=== PATIENT | female | born 1990 | race Caucasian/White ===

== ENCOUNTER 2016-05-25 17:46 | Emergency (ER) | payer OTHER ==
[~2016-05-25] VITALS: Ht 170.2 cm; Wt 138.6 kg
[~2016-05-25 17:46] MED LIST: ASCO-294 PO; DOCU-41 PO; FERR-83 PO
[2016-05-25 18:34] VITALS: BP 127/88; PULSE 85; RESP 16; O2SAT 99
[2016-05-25] MEDS ORDERED: 0.9% Sodium Chloride 1,000 ML IV ONE (20:01)
[2016-05-25] MEDS ORDERED: Ondansetron 2 mg/mL 2 mL Inj IVPUSH PRN (20:05)
--- NOTE | 2016-05-25 20:10 | ED.REPORT ---
HPI-Abd Pain F Under 40 Date of Service May 25, 2016 ED Provider: Radha Mendez MD Pt is a 25 y/o female presenting to the ED c/o abdominal pain onset today. She had a single episode of white stool yesterday which progressed to yellow- specked stools today. She attempted to call her PCP's office with no success. She c/o band-like fullness across the epigastrium, nausea and vomiting which have resolved. She denies fever, chills. She has never experienced symptoms similar to this before and has no history of liver disease. Abdominal surgeries: Nursing Notes Stated Complaint: NAUSEA, FATIGUE, WHITE STOOL Chief Complaint: Female Abdominal Pain Nursing Notes Reviewed: Yes Allergies: Coded Allergies: No Known Allergies (Unverified , 11/19/15) Scheduled Ascorbate Calcium (Vitamin C) 500 Mg Tablet 500 MG PO DAILY Take with Iron Ferrous Sulfate (Ferrous Sulfate) 325 Mg Tablet 325 MG PO DAILY Scheduled PRN Docusate Sodium (Colace) 100 Mg Capsule 100 MG PO BID PRN PRN For Constipation General Time Seen by MD: 20:00 Chief Complaint Abdominal pain Hx Obtained From: Patient Arrived By: Walk-in Sudden in Onset?: No Onset Occurred: 5 - 8 hours ago Symptom Duration: Since onset Location: : Epigastric Quality: Fullness Radiation: : Does not radiate Severity: Current: Mild Severity: Maximum: Mild Similar Sx Previous: No Past Medical History Past Medical History baby boy born 10/31/2016 Past Surgical History Reports: Smoking History Never Smoker Social History Alcohol Use: Denies alcohol use Drug Use: Denies drug use Occupation lives with family Ambulatory Status Independent Review of Systems Review of Systems Note: +white stool Constitutional: Denies: Chills, Fever Respiratory: Denies: Non-productive cough, Shortness of breath Cardiovascular: Denies: Chest pain GI: Reports: Abdominal pain, Nausea, Vomiting Complete sys rev & neg: except as marked. Physical Exam Initial Vital Signs Vital Signs (First) Date Time Temp Pulse Resp B/P Pulse Ox O2 Delivery O2 Flow Rate FiO2 05/25/16 18:34 36.6 85 16 127/88 99 Room Air Initial VS: Reviewed ENT: Mucous membranes moist, Conjunctiva normal, No scleral icterus Neurologic: Alert, Oriented, Nonfocal Psychiatric: Mood/affect normal, Behavior normal, Normal thought content General/Constitutional: Awake, Alert, No acute distress, Well appearing, Cooperative, Not toxic appearing Appearance / Presentation: Negative: Icteric Respiratory / Chest: Atraumatic, Breath sounds NL, Breath sounds = bilat, No respiratory distress, No rales, No rhonchi, No wheezing, No retractions Cardiovascular: Heart rate NL, Regular rhythm, Heart sounds NL, No gallop, No murmurs, No rubs, Cap refill not delayed, Peripheral circulation NL Abdomen: Atraumatic, Soft, No guarding, No rebound, No palpable mass Mildly distention of the upper quadrants Back: Full range of motion, Painless range of motion Head / Eyes: Atraumatic, Normocephalic, PERRL, EOMI, No scleral icterus Skin: Atraumatic, Color NL, No rash, Warm, Dry, Intact Color / Condition: Negative: Jaundice present Interpretation & Diagnostics Lab Results Interpretation Result Diagram: 05/25/16195505/25/161955 Test 05/25/16 19:50 05/25/16 19:56 05/25/16 20:00 Hold Pratt Top Tube Received (Received) White Blood Count 7.3th/mm3 (3.8-10.1) Red Blood Count 5.25mil/mm3 (3.90-5.20) Hemoglobin 13.2g/dL (12.0-15.6) Hematocrit 40.5% (35.0-46.0) Mean Corpuscular Volume 77.1fL (81-100) Mean Corpuscular Hemoglobin 25.1pg (27.0-35.0) Mean Corpuscular Hemoglobin Concent 32.6% (32.0-37.0) Red Cell Distribution Width 14.5% (12.3-15.4) Platelet Count 216bil/L (150-400) Neutrophils (%) (Auto) 54.1% (40-74) Lymphocytes (%) (Auto) 37.2% (14-46) Monocytes (%) (Auto) 6.7% (4-12) Eosinophils (%) (Auto) 1.4% (0-5) Basophils (%) (Auto) 0.5% (0-3) Sodium Level 141mEq/L (134-144) Potassium Level 4.2mEq/L (3.5-5.2) Chloride Level 104mEq/L (97-108) Carbon Dioxide Level 26mmol/L (18-29) Blood Urea Nitrogen 11mg/dL (6-20) Creatinine 0.59mg/dL (0.57-1.00) Estimat Glomerular Filtration Rate 176mL/min (>59) Glucose Level 90mg/dL (60-99) Calcium Level 8.9mg/dL (8.5-10.1) Magnesium Level 2.0mg/dL (1.6-2.6) Total Bilirubin 0.2mg/dL (0.0-1.2) Aspartate Amino Transf (AST/SGOT) 35U/L (0-50) Alanine Aminotransferase (ALT/SGPT) 56U/L (0-32) Alkaline Phosphatase 57U/L (25-150) Total Protein 6.8g/dL (6.4-8.4) Albumin 4.0g/dL (3.4-5.0) Lipase 35U/L (13-60) Urine Color Yellow (YELLOW) Urine Appearance Clear (CLEAR,HAZY) Urine pH 6.5 (5.0-8.0) Urine Specific [place] 1.010 (1.003-1.035) Urine Protein Negativemg/dL (NEG,TRACE) Urine Glucose (UA) Negativemg/dL (NEGATIVE) Urine Ketones Negativemg/dL (NEGATIVE) Urine Occult Blood Negative (NEGATIVE) Urine Nitrite Negative (NEGATIVE) Urine Bilirubin Negative (NEGATIVE) Urine Urobilinogen Normalmg/dL (NORMAL) Urine Leukocyte Esterase Negative (NEGATIVE) Urine RBC 0-2/hpf (0-2) Urine WBC 0-5/hpf (0-5) Urine Epithelial Cells Moderate/hpf (NONE-MOD) Urine Crystals None seen (NONE SEEN) Urine Bacteria None/hpf (NONE-FEW) Urine Hyaline Casts None/lpf (NONE) Urine Granular Casts None seen (NONE SEEN) Urine Waxy Casts None seen (NONE SEEN) Urine Red Blood Cell Casts None seen (NONE SEEN) Urine White Blood Cell Casts None seen (NONE SEEN) Urine Mucus None seen (None Seen) Urine Trichomonas None seen (NONE SEEN) Urine Yeast None (NONE SEEN) Urinalysis Comment None Urine Culture Reflexed Not indicated Lab Results Interpretation: Urine preg: negative Re-Eval/Medical Decision Re-Evaluation/Progress : Time of Eval: 21:30 Re-Evaluation/Progress Note: Pt rechecked. Informed pt of plan for treatment. Pt understands and agrees with plan for treatment. F/U and RTER warnings given. All questions addressed. Counseled Regarding: Diagnosis, Lab results, Need for follow-up, When/why to return to ED Discharge & Departure Primary Impression: Diarrhea Additional Impression: Viral syndrome Disposition: Home Discharge Condition All VS Reviewed: Yes Condition: Stable Patient Instructions: Acute Diarrhea (ED) Additional Instructions: Your labs today were normal. The liver function tests were within normal limits. The cause of your abnormally colored stools is unclear, but is not dangerous at this point. My best guess is that your symptoms are caused by a virus. Return to the emergency department for persistently abnormally colored stools, worsening abdominal pain, uncontrolled vomiting, you develop a high fever, or for other concerning signs or symptoms. Referrals: Janae Vargas PA-C (PCP) Saba Attestation Portions of this note were transcribed by Oskar Foote. I, Dr. Mendez personally performed the history, physical exam and medical decision-making; I reviewed and confirmed the accuracy of the information in the transcribed note. Signed by Saba Dale, 05/25/152010 copies to: Janae Vargas PA-C, Shawna L MD May 25, 2016 20:10 OSKAR FOOTE May 25, 2016 20:13
[2016-05-25 20:12] LABS: BASOPHILS % (AUTO) 0.5 % (0-3); EOSINOPHILS % (AUTO) 1.4 % (0-5); MONOCYTES % (AUTO) 6.7 % (4-12); Mean Corpuscular Hemoglobin 25.1 pg (27.0-35.0); Mean Corpuscular Volume 77.1 fL (81-100); NEUTROPHILS % (AUTO) 54.1 % (40-74); Platelet Count 216 bil/L (150-400)
[2016-05-25 20:22] LABS: APPEARANCE,URINE CLEAR (CLEAR,HAZY); COLOR,URINE YELLOW (YELLOW); OCCULT BLOOD,URINE NEGATIVE (NEGATIVE); PH,URINE 6.5 (5.0-8.0); UROBILINOGEN,URINE NORMAL (NORMAL)
[2016-05-25 21:59] VITALS: BP 136/88; PULSE 85; RESP 20; O2SAT 100
== END 2016-05-25 22:00 | disposition home or self-care (01) ==
LOC: SED 17:46
DX: R19.7 Diarrhea, unspecified (principal); B34.9 Viral infection, unspecified

== ENCOUNTER 2016-09-06 05:51 | Day surgery (SDC) | payer OTHER ==
[2016-09-06] VITALS (7 sets, daily range): BP systolic 120–167; BP diastolic 60–98; PULSE 88–103; RESP 16–20; O2SAT 92–97
[~2016-09-06] VITALS: Ht 170.2 cm; Wt 144.3 kg
[~2016-09-06 05:51] MED LIST changes: -ASCO-294 PO; -DOCU-41 PO; -FERR-83 PO; +Lactated Ringer's 1,000 ML IV ONE
[2016-09-06] MEDS ORDERED: fentaNYL-PF 50 mCg/mL 2 mL Inj ONE (05:52)
[2016-09-06] MEDS ORDERED: Ondansetron 2 mg/mL 2 mL Inj ONE (05:52)
[2016-09-06] MEDS ORDERED: Dexamethasone 4 mg/mL Inj ONE (05:52)
[2016-09-06] MEDS ORDERED: Remifentanil 1 mg/3 mL Inj ONE (05:52)
[2016-09-06] MEDS ORDERED: Succinylcholine Chloride 20 mg/mL 5 mL Inj ONE (05:52)
[2016-09-06] MEDS ORDERED: Propofol 10,000 mCg/mL 20 mL Inj ONE (05:52)
[2016-09-06] MEDS ORDERED: Rocuronium 10 mg/mL 5 mL Inj ONE (05:52)
[2016-09-06] MEDS ORDERED: CeFAZolin Inj 3 GM in IV Premix IV ONE (06:00)
[2016-09-06] MEDS ORDERED: OXYC1TAB24 PO (06:27)
[2016-09-06] MEDS ORDERED: Lactated Ringer's 500 ML IV PRN (08:12)
[2016-09-06] MEDS ORDERED: Lactated Ringer's 1,000 ML IV SCH (08:12)
--- NOTE | 2016-09-06 08:12 | PCM.HPANE ---
Patient Data Surgeon Admitting Provider: Attending Provider:Alex Davis MD Primary Care Physician:Janae Vargas PA-C Other Provider:Pop Murrieta Anesthesia Reason for Visit Right Wrist Radial Volar Ganglion Cyst Ht/WT & BMI Height (Feet): 5 Height (Inches): 7 Weight (Kilograms): 144.3 Body Mass Index 49.00 Allergies Coded Allergies: No Known Allergies (Unverified , 09/03/16) Past Anesthesia History Anesthesia History: Denies:: Anesthesia Reactions, Malignant Hyperthermia Diabetes History Hx Diabetes?: No MRSA MRSA: No Medications Hypertension Medication: No Home Meds Incl Beta Mona: No Reported Medications oxyCODONE-Acetaminophen 5-325 mg 1 Each Tablet1 Tablet PO prn #30 09/06/16 History History of ENT Problems?: Yes HEENT History: Positive for:: Sinus Problem (SEASONAL ALLERGIES) Denies:: Abnormal Airway Cataracts Difficult Intubation Dysphagia Glaucoma Hearing Problem TMJ Denture Type: None Teeth Condition: Within Normal Limits Hx of Heart Problems?: No Cardiovascular History: Denies:: AICD Abdominal Aortic Aneurism Atrial Fibrillation Cardiac Surgery Chest Pain Congestive Heart Failure Coronary Artery Disease Edema Heart Murmur Hypertension Irregular Heartbeat Pacemaker Peripheral Vascular Rheumatic Fever Thrombophlebitis Valvular Heart Disease Hx of Respiratory Problem?: No Respiratory History: Denies:: Asthma COPD Chest Surgery Cough Dyspnea Emphysema Hemoptysis Oxygen Administration Pneumonia Pulmonary Embolism Tuberculosis Use of C-PAP Machine Use of Inhalers / NEBS Hx Neurologic Problems?: No Neurological History: Denies:: Alzheimer's Disease CVA Dementia Dizziness Headaches Multiple Sclerosis Parkinson's Disease Peripheral Neuropathy Seizures TIA Hx of GI Problems?: Yes Gastrointestinal History: Denies:: Cirrhosis Diverticulitis Gall Bladder Disease Gastroesphageal Reflux Gastrointestinal Bleeding Heartburn Hepatitis Hiatal Hernia Liver Disease Rectal Bleeding Other GI Pertinent History: OBESITY Hx of Problems?: No Female Hx: Denies:: Currently (neg test) Skin History: Denies:: History Skin Disorders? Pressure Ulcers Hx Musculoskeletal Problems?: Yes Hx of Psycho/Social Problems?: No Hx Surgeries?: Yes (C/S) Other History/Comment No prior general anesthetics Hx Any Other Health Problems?: Yes Other History: Denies:: Cancer Endocrine Disease Hospitalization Thyroid Disease History Blood Transfusions: Positive for:: Accept Blood Products? Denies:: Blood Transfusions Hx Diabetes: No Hx Alcohol Use: Yes (rarely)Hx Substance Use: No Smoking Status: Never Smoker Have You Smoked inLast 12 mo: No Stop/Bang S-Snoring: Do You Snore Loudly: No T-Tired: feel tired, fatigued: Yes O-Obsered: Observed not breath: No P-Blood Pressure: treated: No B- Body Mass Index > 35 kg/m2: Yes A- Age over 50: No N- Neck Large Circumference: Yes G- Gender Male: No MARYLU Total Score: 3 MARYLU Risk Assessment: High Risk, =/>3 Yes Risk Assessment Category Category 1A: Patient has history of documented sleep apnea, and HAS NOT received any narcotic, sedative or anesthesia administration during this stay. Category 1B: Patient has history of documented sleep apnea, and HAS received any narcotic , sedative or anesthesia administration during this stay Category 2: Patient has SUSPECTED Obstructive Sleep Apnea, and HAS received any narcotic , sedative or anesthesia administration during this stay. Category 3: Patient has SUSPECTED Obstructive Sleep Apnea and HAS NOT received narcotic, sedative or anesthesia administration during this stay. Category 4: Outpatient in Procedural Areas with known sleep apnea or who screen positive for High Risk via the STOP/BANG questionnaire. Exam Exam Vital Signs Vital Signs Date Time Temp Pulse Resp B/P Pulse Ox O2 Delivery O2 Flow Rate FiO2 09/06/16 06:23 36.2 90 18 167/98 97 Room Air General Appearance: Alert, Oriented X3, Cooperative, No Acute Distress HEENT/AIRWAY: MP 2 Lungs: Clear to Auscultation, Normal Air Movement Heart: Exam Unremarkable, Regular Rate/Rhythm, No Murmurs/Rubs/Gallops Meds/Labs/Diagnostics Admission Meds Current Medications Lactated Ringer's (Lr) 1,000 ml @ 120 mls/hr [id number] ONCE IV Last administered on 09/06/16t 06:16; Start 09/06/16 at 00:54; Stop 09/06/16 at 09:13 Plan Impression Patient chart reviewed, patient interviewed and anesthestic plan with risks, benefits, and alternatives discussed, and informed consent obtained. NPO per Anesth. Guidelines: Yes ASA Physical Status: ASA3 Severe Disease Anesthetic Plan: GA Bene/Risks/Altern/Consents: Yes HP Complete Prior to Induction: Yes Matheus Hayes MD Sep 06, 2016 06:56
[2016-09-06] MEDS ORDERED: MetoCLOpramide 5 mg/mL 2 mL Inj IVPUSH PRN (08:15)
[2016-09-06] MEDS ORDERED: Ondansetron 2 mg/mL 2 mL Inj IVPUSH PRN (08:15)
[2016-09-06] MEDS ORDERED: hydrOXYzine Inj 50 MG/1 mL SDV IM PRN (08:15)
[2016-09-06] MEDS ORDERED: HYDROmorphone 1 mg/mL Inj IVPUSH PRN (08:15)
[2016-09-06] MEDS ORDERED: Labetalol 5 mg/mL 4 mL Inj IV PRN (08:15)
[2016-09-06] MEDS ORDERED: fentaNYL-PF 50 mCg/mL 2 mL Inj IVPUSH PRN (08:15)
[2016-09-06] MEDS ORDERED: EPHEDrine Sulfate 50 mg/mL Inj IVPUSH PRN (08:15)
[2016-09-06] MEDS ORDERED: Atropine 0.4 mg/mL Inj IVPUSH PRN (08:15)
[2016-09-06] MEDS ORDERED: EPHEDrine Sulfate 50 mg/mL Inj IM PRN (08:15)
[2016-09-06] MEDS ORDERED: Phenylephrine 10,000 mCg/mL Inj IVPUSH PRN (08:15)
[2016-09-06] MEDS ORDERED: Bupivacaine-MPF 0.5% 30 mL Inj INFILTRATE ONE (08:19)
[2016-09-06] MEDS ORDERED: oxyCODONE-Acetamin 5-325 mg Tablet PO PRN (09:50)
--- NOTE | 2016-09-06 09:56 | PCM.ANEP1 ---
Post Anesthesia Phase 1 PACU Phase 1 Assessment Vital Signs Vital Signs Date Time Temp Pulse Resp B/P Pulse Ox O2 Delivery O2 Flow Rate FiO2 09/06/16 09:50 101 20 130/66 92 Room Air 09/06/16 09:45 103 17 120/60 96 Simple Mask 8 09/06/16 09:39 36.3 100 16 158/98 96 Simple Mask 8 09/06/16 06:23 36.2 90 18 167/98 97 Room Air Anesthetic Administered: GA Level of Alertness: Awake, talking SEN's with Equal Strength: Yes Pain: No Nausea or Vomiting: No Cardiovascular Function and Hy: Yes Oxygen Delivery: Simple Mask Lungs: Clear to Auscultation, Normal Air Movement Complications: No Follow up Care: No Patient Instructions Provided: Yes (per RN) Mathesu Hayes MD Sep 06, 2016 09:56
--- NOTE | 2016-09-06 14:12 | OP ---
[address] [address] OPERATIVE REPORT PATIENT: CELIA GUILLAUME : 1990 MR#: [id number] ADMIT: 09/06/2016 JOB ID: [id number] DATE OF SURGERY: 09/06/2016 PREOPERATIVE DIAGNOSIS(ES): Right wrist radial volar ganglion extending down to the radiocarpal joint. ICD 10 code M67.431. POSTOPERATIVE DIAGNOSIS(ES): Right wrist radial volar ganglion extending down to the radiocarpal joint. ICD 10 code M67.431. PROCEDURE: Removal right wrist radial volar ganglion down to the radiocarpal joint. CPT code 10897. SURGEON: Alex Davis MD. LICENSED WEIGHER: None. ANESTHESIA: General. ESTIMATED BLOOD LOSS: Two mL. DRAINS: None. COMPLICATIONS: None. Tourniquet utilized. SPECIMEN: Sent to Pathology. INDICATIONS: This is a 25-year-old, right-hand dominant female, mother of a young child, with persistent pain and swelling over the right wrist with MRI documented evidence of a large radial volar ganglion extending down to the radial carpal joint. PROCEDURE: Under adequate general anesthetic, a well-padded tourniquet was applied to the right upper extremity. The patient was noted to have a very large BMI. After appropriate time-out was called the right arm was elevated, exsanguinated. Tourniquet was inflated up to 280 mmHg since her pressure was relatively high to start. A curvilinear incision was fashioned over the distal radius around the edge of the wound volar radial ganglion which was very prominent. The radial artery was identified proximal to the ganglion. Small vessel loop was placed underneath the radial artery to maintain control of the artery since the ganglion was totally adherent to the edge of the artery. With very careful dissection, the large volar radial ganglion was dissected down to its edge where it was coming through the volar fascia. The volar fascia was carefully released. With further careful dissection, the radial artery was gently dissected off of the ganglion taking care to protect the artery throughout the procedure. The flexor carpi radialis tendon was not involved in the ganglion. The ganglion was carefully followed down to the radial aspect of the distal radius and right down to the radiocarpal joint. Once the stalk was totally dissected down to the radiocarpal joint the cyst was removed in its entirety. A small incision was made in the joint capsule along the radiocarpal joint taking care to protect the volar carpal ligaments. I did use image intensification mini C-arm for one view to document that the ganglion was extended down to the radiocarpal joint. The wound was irrigated with saline and skin infiltrated with 0.5% plain Marcaine. Minimal hemostasis was required. A few subcuticular sutures of 4-0 Monocryl were utilized and the skin was reapproximated with running subcuticular suture of 4-0 Monocryl. Mastisol and Steri-Strips were applied. Xeroform dry sterile dressings were applied and patient was placed in a well-padded short-arm fiberglass splint. PLAN: Patient is encouraged to do gentle range of motion to the fingers. She was taken to recovery room in stable condition. Sponge and needle count correct. She should be seen back in the office in two weeks for dressing change. She may be fitted with a short arm velcro splint to use while driving or going to the grocery store. The Monocryl sutures will need to be clipped flush with the skin at that time. I have encouraged her to do gentle finger motion but not do any heavy gripping or lifting for about six weeks. The patient was discharged home on some Keflex and she already had a prescription for Percocet from a prior surgery last year and stated she did need any additional narcotics. CC: [facility] CC: Loida Leon
--- NOTE | 2016-09-10 14:28 | PATH ---
SURGICAL PATHOLOGY Attending Physician:Mirna King CASE STATUS: Signed Out PATIENT NAME: CELIA GUILLAUME PID: [id number] : 1990 DATE COLLECTED:09/06/2016 18:52 SPECIMEN: Ganglion Cyst CLINICAL HISTORY: RIGHT WRIST RADIAL COLAR GANGLION CYST 1). RIGHT WRIST RADIAL COLAR GANGLION CYST OF JOINT FINAL DIAGNOSIS: 1.TISSUE FROM RIGHT WRIST: GANGLION CYST. ICD10 CODE M67.431 GROSS DESCRIPTION: Received in formalin, labeled with the patient' s name and "right wrist radial volar ganglion cyst of joint", is one reid-luis, spongy, cylindrical fragment of tissue measuring 5.0 x 0.4 x 0.3 cm. At one end is a short suture and in the middle portion is a long suture. The sutures are not noted as being designated; however, the short suture area is inked orange and the long suture area is inked yellow. The remaining fragment is inked blue, and the entire fragment is submitted in cassette 1A for possible further sectioning at embedding. ([id number]) MICRO DESCRIPTION: See diagnosis. ICD-9 CODES: CPT CODES: 1: 83402 Electronically Signed Out Sincere Mendoza MD [facility] Pathology [facility] [address], [place] [address] Technical component performed at [facility], [facility] [address], [place], [address]
== END 2016-09-06 23:59 | disposition home or self-care (01) ==
LOC: SAS 05:51
PROVIDERS: ATTEND Orthopaedic Surgery
DX: M67.431 Ganglion, right wrist (principal); J30.2 Other seasonal allergic rhinitis; E66.01 Morbid (severe) obesity due to excess calories; Z68.42 Body mass index [BMI] 45.0-49.9, adult
CPT/HCPCS: 25111; J0330; J0690; J1100; J1885; J2250; J2405; J3010; J7120